=== PATIENT | male | born 1935 | race Caucasian/White ===

== ENCOUNTER 2022-04-22 07:54 | Outpatient (CLI) | payer MEDICARE ==
[2022-04-22] MEDS ORDERED: Iopamidol 300 61% 100 ML VIAL FS ONE (09:35)
== END 2022-04-22 07:55 | disposition home or self-care (01) ==
LOC: CSHCT 07:54
PROVIDERS: ATTEND Internal Medicine Hematology & Oncology
DX: C83.31 Diffuse large B-cell lymphoma, lymph nodes of head, face, and neck (principal); D50.0 Iron deficiency anemia secondary to blood loss (chronic); N18.30 Chronic kidney disease, stage 3 unspecified; D47.2 Monoclonal gammopathy; R18.8 Other ascites
CPT/HCPCS: 71260; 74177; 82565; Q9967

== ENCOUNTER 2022-10-07 09:05 | Outpatient (CLI) | payer MEDICARE ==
[2022-10-07] MEDS ORDERED: Iopamidol 300 61% 100 ML VIAL FS ONE (09:10)
== END 2022-10-07 09:06 | disposition home or self-care (01) ==
LOC: CSHCT 09:05
PROVIDERS: ATTEND Internal Medicine Hematology & Oncology
DX: C83.31 Diffuse large B-cell lymphoma, lymph nodes of head, face, and neck (principal); N18.31 Chronic kidney disease, stage 3a; D50.0 Iron deficiency anemia secondary to blood loss (chronic); D47.2 Monoclonal gammopathy; K11.8 Other diseases of salivary glands; Q89.2 Congenital malformations of other endocrine glands; E04.1 Nontoxic single thyroid nodule; M50.30 Other cervical disc degeneration, unspecified cervical region; I65.22 Occlusion and stenosis of left carotid artery; J90 Pleural effusion, not elsewhere classified; E07.9 Disorder of thyroid, unspecified
CPT/HCPCS: 70491; 71260; 74177; 82565; Q9967

== ENCOUNTER 2023-03-24 08:30 | Outpatient (CLI) | payer MEDICARE ==
[2023-03-24] MEDS ORDERED: Iopamidol 300 61% 100 ML VIAL FS ONE (10:22)
== END 2023-03-24 08:31 | disposition home or self-care (01) ==
LOC: CSHCT 08:30
PROVIDERS: ATTEND Internal Medicine Hematology & Oncology
DX: C83.31 Diffuse large B-cell lymphoma, lymph nodes of head, face, and neck (principal); N18.31 Chronic kidney disease, stage 3a; D50.0 Iron deficiency anemia secondary to blood loss (chronic); D47.2 Monoclonal gammopathy; J90 Pleural effusion, not elsewhere classified; R18.8 Other ascites; R59.0 Localized enlarged lymph nodes; N20.0 Calculus of kidney; N28.1 Cyst of kidney, acquired
CPT/HCPCS: 70491; 71260; 74177; 82565; Q9967

== ENCOUNTER 2023-09-14 08:42 | Outpatient (CLI) | payer MEDICARE ==
[2023-09-14] MEDS ORDERED: Iopamidol 300 61% 100 ML VIAL FS ONE (10:07)
== END 2023-09-14 08:43 | disposition home or self-care (01) ==
LOC: CSHCT 08:42
PROVIDERS: ATTEND Internal Medicine Hematology & Oncology
DX: C83.31 Diffuse large B-cell lymphoma, lymph nodes of head, face, and neck (principal)
CPT/HCPCS: 70491; 71260; 74177; 82565

== ENCOUNTER 2023-12-26 08:35 | Outpatient (CLI) | payer MEDICARE | END 2023-12-26 08:36 | disposition home or self-care (01) | LOC: CSHCT 08:35 | PROVIDERS: ATTEND Neurological Surgery | DX: S06.6XAD Traumatic subarachnoid hemorrhage with loss of consciousness status unknown, subsequent encounter (principal); J32.9 Chronic sinusitis, unspecified | CPT/HCPCS: 70450 ==